=== PATIENT | male | born 1990 | race Two or more races ===

== ENCOUNTER 2020-01-28 09:45 | Emergency (ER) | payer OTHER, MEDICAID ==
[~2020-01-28] VITALS: Ht 177.8 cm; Wt 125.0 kg
[2020-01-28 10:25] VITALS: BP 148/67
== END 2020-01-28 11:59 | disposition home or self-care (01) ==
LOC: EMS 09:46
DX: S93.401A Sprain of unspecified ligament of right ankle, initial encounter (principal); Z90.49 Acquired absence of other specified parts of digestive tract; X50.1XXA Overexertion from prolonged static or awkward postures, initial encounter; Y93.89 Activity, other specified; Y92.89 Other specified places as the place of occurrence of the external cause; Y99.8 Other external cause status
CPT/HCPCS: 29515